=== PATIENT | male | born 1975 | race Caucasian/White ===

== ENCOUNTER 2017-11-26 07:30 | Emergency (ER) | payer SELFPAY ==
[2017-11-26] MEDS ORDERED: KETOROLAC 30 MG/ML INJ ONE (07:59)
--- NOTE | 2017-11-26 08:19 | EDPHYS ---
Physician Documentation [facility] Name: Dalton Jha Age: 42 yrs Sex: Male : 1975 Arrival Date: 11/26/2017 Time: 07:33 Bed 8 Private MD: Jeff Lundberg ED Physician Sadi Hung HPI: 11/26 08:31 This 42 yrs old Male presents to ER via Ambulatory with complaints of Back kb Pain. 08:31 The patient presents with pain that is chronic, with no known mechanism of injury. The kb symptoms are located in the low back. Onset: The symptoms/episode began/occurred last week. The pain does not radiate. Associated signs and symptoms: The patient has no apparent associated signs or symptoms. The problem was sustained from a chronic condition. 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 Severity of symptoms: At their worst the symptoms were moderate, in the emergency department the symptoms are unchanged. The patient has experienced similar episodes in the past, chronically. The patient has not recently seen a physician. Pt reports he has had chronic back pain, used to see Dr Aleman for pain management, but couldn't work anymore due to pain so he lost his job and insurance. States he hasn't been to him in about a year and a half and has been out of work that long as well. 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 Pt made appt with Ash for 12/06 and will follow up with him then. STates "I came in to see if I could get an order for a MRI so he could have the report when I go see him.". Historical: - Allergies: 07:48 PENICILLINS; sv - PMHx: 07:48 ADD/ADHD; Back pain; sv - PSHx: 07:48 None; sv - Immunization history:: Adult Immunizations up to date. - Social history:: Smoking status: Patient/guardian denies using tobacco. - Ebola Screening: : No symptoms or risks identified at this time. ROS: 08:30 Constitutional: Negative for fever, chills, and weight loss, Cardiovascular: Negative kb for chest pain, palpitations, and edema, Respiratory: Negative for shortness of breath, cough, wheezing, and pleuritic chest pain, Abdomen/GI: Negative for abdominal pain, nausea, vomiting, diarrhea, and constipation, : Negative for injury, bleeding, discharge, and swelling, MS/Extremity: Negative for injury and deformity, Skin: Negative for injury, rash, and discoloration, Neuro: Negative for headache, weakness, numbness, tingling, and seizure. 08:30 Back: Positive for pain at rest, pain with movement, of the lumbar area. Exam: 08:29 Constitutional: This is a well developed, well nourished patient who is awake, alert, kb and in no acute distress. Head/Face: Normocephalic, atraumatic. Eyes: Pupils equal round and reactive to light, extra-ocular motions intact. Lids and lashes normal. Conjunctiva and sclera are non-icteric and not injected. Cornea within normal limits. Periorbital areas with no swelling, redness, or edema. Neck: Trachea midline, no thyromegaly or masses palpated, and no cervical lymphadenopathy. Supple, full range of motion without nuchal rigidity, or vertebral point tenderness. No Meningismus. Chest/axilla: Normal chest wall appearance and motion. Nontender with no deformity. No lesions are appreciated. Cardiovascular: Regular rate and rhythm with a normal S1 and S2. No gallops, murmurs, or rubs. Normal PMI, no JVD. No pulse deficits. Respiratory: Lungs have equal breath sounds bilaterally, clear to auscultation and percussion. No rales, rhonchi or wheezes noted. No increased work of breathing, no retractions or nasal flaring. Abdomen/GI: Soft, non-tender, with normal bowel sounds. No distension or tympany. No guarding or rebound. No evidence of tenderness throughout. Back: No spinal tenderness. No costovertebral tenderness. Full range of motion. Skin: Warm, dry with normal turgor. Normal color with no rashes, no lesions, and no evidence of cellulitis. MS/ Extremity: Pulses equal, no cyanosis. Neurovascular intact. Full, normal range of motion. Neuro: Awake and alert, GCS 15, oriented to person, place, time, and situation. Cranial nerves II-XII grossly intact. Motor strength 5/5 in all extremities. Sensory grossly intact. Cerebellar exam normal. Normal gait. 08:34 Neuro: Exam negative for acute changes, gait abnormality, paresthesias. kb Vital Signs: 07:49 BP 136 / 90; Pulse 75; Resp 18; Temp 97.4; Pulse Ox 100% ; Weight 90.72 kg; Height 5 sv ft. 10 in. (177.80 cm); Pain 8/10; 07:49 Body Mass Index 28.70 (90.72 kg, 177.80 cm) sv MDM: 07:36 Patient medically screened. kb 07:48 Data reviewed: vital signs, nurses notes. Data interpreted: Pulse oximetry: on room air kb is 98 %. Interpretation: normal. Counseling: I had a detailed discussion with the patient and/or guardian regarding: the historical points, exam findings, and any diagnostic results supporting the discharge/admit diagnosis, the need for outpatient follow up, a picture painter, to return to the emergency department if symptoms worsen or persist or if there are any questions or concerns that arise at home, Pt has appt with Dr Aleman on 12/06. Administered Medications: 07:55 Drug: TORadol 60 mg Route: IM; Site: right deltoid; 08:21 Follow up: Response: No adverse reaction sv Disposition: 10:18 Co-signature as Attending Physician, Sadi Hung MD I agree with the assessment and nya plan of care. Disposition: 11/26/17 08:19 Discharged to Home. Impression: Low back pain, Chronic pain, not elsewhere classified. - Condition is Stable. - Discharge Instructions: Back Injury Prevention, [id number], Back Pain, Adult, [id number], Back Exercises, [id number]-mh-[id number]. - Prescriptions for Cyclobenzaprine 10 mg Oral Tablet - take 1 tablet by ORAL route every 8 hours As needed; 21 tablet. Diclofenac Sodium 75 mg Oral Tablet, Delayed Release (E.C.) - take 1 tablet by ORAL route 2 times per day As needed; 30 tablet. - Medication Reconciliation Form, Thank You Letter, Antibiotic Education, Prescription Opioid Use form. - Follow up: Emergency Department; When: As needed; Reason: Worsening of condition. Follow up: Private Physician; When: 2 - 3 days; Reason: Recheck today's complaints, Continuance of care, Re-evaluation by your physician. Signatures: Koki García, Deena Cummings RN RN sv Anderson, Corey, MD MD cha Baxter, Heather, RN RN Corrections: (The following items were deleted from the chart) 08:26 08:19 11/26/2017 08:19 Discharged to Home. Impression: Low back pain; Chronic pain, not hb elsewhere classified. Condition is Stable. Discharge Instructions: Back Injury Prevention, [id number], Back Pain, Adult, [id number], Back Exercises, [id number]-mf-[id number]. Prescriptions for Cyclobenzaprine 10 mg Oral Tablet - take 1 tablet by ORAL route every 8 hours As needed; 21 tablet, Diclofenac Sodium 75 mg Oral Tablet, Delayed Release (E.C.) - take 1 tablet by ORAL route 2 times per day As needed; 30 tablet. and Forms are Medication Reconciliation Form, Thank You Letter, Antibiotic Education, Prescription Opioid Use. Follow up: Emergency Department; When: As needed; Reason: Worsening of condition. Follow up: Private Physician; When: 2 - 3 days; Reason: Recheck today's complaints, Continuance of care, Re-evaluation by your physician. kb
--- NOTE | 2017-11-26 08:19 | ER ---
Nurse's Notes [facility] Name: Dalton Jha Age: 42 yrs Sex: Male : 1975 Arrival Date: 11/26/2017 Time: 07:33 Bed 8 Private MD: Jeff Lundberg Diagnosis: Low back pain;Chronic pain, not elsewhere classified Presentation: 11/26 07:38 Presenting complaint: Patient states: chronic low back pain but injured it at work last sv week after shoveling at work. Transition of care: patient was not received from another setting of care. Onset of symptoms was November 19, 2017. Risk Assessment: Do you want to hurt yourself or someone else? Patient reports no desire to harm self or others. Initial Sepsis Screen: Does the patient meet any 2 criteria? No. Patient's initial sepsis screen is negative. Does the patient have a suspected source of infection? No. Patient's initial sepsis screen is negative. Care prior to arrival: Medication(s) given: BC powder. 07:38 Method Of Arrival: Ambulatory sv 07:38 Acuity: SANDER 4 sv Triage Assessment: 07:38 General: Appears in no apparent distress. uncomfortable, well developed, Behavior is sv calm, cooperative, appropriate for age. Pain: Complains of pain in lumbar area Pain currently is 8 out of 10 on a pain scale. Pain began last week Is continuous, Current management is with BC powder. EENT: No signs and/or symptoms were reported regarding the EENT system. Neuro: Level of Consciousness is awake, alert, obeys commands, Oriented to person, place, time, situation, Moves all extremities. Full function Gait is steady, Speech is normal. Cardiovascular: Patient's skin is warm and dry. Respiratory: Respiratory effort is even, unlabored, Respiratory pattern is regular, symmetrical. Derm: Skin is pink, warm \T\ dry. Musculoskeletal: Circulation, motion, and sensation intact. Range of motion: intact in all extremities. Historical: - Allergies: 07:48 PENICILLINS; sv - PMHx: 07:48 ADD/ADHD; Back pain; sv - PSHx: 07:48 None; sv - Immunization history:: Adult Immunizations up to date. - Social history:: Smoking status: Patient/guardian denies using tobacco. - Ebola Screening: : No symptoms or risks identified at this time. Screenin:45 Abuse screen: Denies threats or abuse. Denies injuries from another. Nutritional hb screening: No deficits noted. Tuberculosis screening: No symptoms or risk factors identified. Fall Risk None identified. Assessment: 07:45 General: Appears in no apparent distress. Behavior is calm, cooperative. Pain: Pain hb currently is 8 out of 10 on a pain scale. Neuro: Level of Consciousness is awake, alert, obeys commands, Oriented to person, place, time, situation. Cardiovascular: Capillary refill < 3 seconds Patient's skin is warm and dry. Respiratory: Airway is patent Trachea midline Respiratory effort is even, unlabored, Respiratory pattern is regular, symmetrical. GI: No signs and/or symptoms were reported involving the gastrointestinal system. : No signs and/or symptoms were reported regarding the genitourinary system. EENT: No signs and/or symptoms were reported regarding the EENT system. Derm: Skin is intact, is healthy with good turgor. Musculoskeletal: Reports pain in back. 08:26 Reassessment: Patient appears in no apparent distress at this time. No changes from previously documented assessment. Patient and/or family updated on plan of care and expected duration. Pain level reassessed. Patient is alert, oriented x 3, equal unlabored respirations, skin warm/dry/pink. Vital Signs: 07:49 BP 136 / 90; Pulse 75; Resp 18; Temp 97.4; Pulse Ox 100% ; Weight 90.72 kg; Height 5 sv ft. 10 in. (177.80 cm); Pain 8/10; 07:49 Body Mass Index 28.70 (90.72 kg, 177.80 cm) sv ED Course: 07:33 Patient arrived in ED. mr 07:34 Jeff Lundberg DO is Private Physician. mr 07:36 [facility]C [facility]. kb 07:36 Sadi Hung MD is Attending Physician. kb 07:45 Deena Yancey, LANETTE is Primary Nurse. sv 07:45 Patient has correct armband on for positive identification. Bed in low position. Call hb light in reach. Side rails up X 1. 07:45 Patient did not have IV access during this emergency room visit. hb 07:47 Triage completed. sv 07:49 Arm band placed on right wrist. sv 08:26 No provider procedures requiring assistance completed. hb Administered Medications: 07:55 Drug: TORadol 60 mg Route: IM; Site: right deltoid; hb 08:21 Follow up: Response: No adverse reaction sv Outcome: 08:19 Discharge ordered by MD. rivera 08:26 Discharged to home ambulatory. hb 08:26 Condition: stable 08:26 Discharge instructions given to patient, Instructed on discharge instructions, follow up and referral plans. medication usage, Demonstrated understanding of instructions, follow-up care, medications, Prescriptions given X 2. 08:26 Patient left the ED. hb Signatures: Koki García, GOLF BALL TRIMMER-C GOLF BALL TRIMMER-Deena Ruiz, RN RN Cierra Arana mr Randi Eddy RN RN
[2017-11-26 08:30] VITALS: BP 136/90; TEMP 97.4; O2SAT 100
== END 2017-11-26 08:26 | disposition home or self-care (01) ==
LOC: ER 07:30
DX: G89.29 Other chronic pain (principal); Z88.0 Allergy status to penicillin
CPT/HCPCS: 96372; 99283

== ENCOUNTER 2024-05-18 10:00 | Emergency (ER) | payer OTHER ==
--- OUTSIDE RECORDS SUMMARY | 2024-05-18 10:04 | XMS REPORT | Continuity of Care Document ---
Author Name Unknown Address [address] [facility] [address] [place] [address] [facility] thconnect Address [address] [facility]. [address] [place] [address] Care Team Providers Care Associate Product Manager Name Role Phone Alvin León Primary Care Physician [phone] Ashok Ponce Attending Clinician Unavailable Alvin León Attending Clinician Unavailable Dara Ravi Attending Clinician [phone] DARA FRANCIS Attending Clinician Unavailable BHAVANA CURRIE Attending Clinician Unavailable Payers Payer Name Policy Type Policy Number Effective Date Expirati on Date Source [facility] PPO [id number] [facility] C1 [id number] 2019 00:00:00 Common [facility] Problems Condition Name Condition Details Condition Category Status Onset Date Resolution Date Last Treatment Date Treating Clinician Comments Source Allergic rhinitis Allergic rhinitis Disease Active 2021-03- 00:00: 00 [facility] Chronic pain Chronic pain Disease Active 2021-03 0-16 00:00: 00 [facility] Generalize d anxiety disorder Generalize d anxiety disorder Disease Active 2021-03-16 00:00: 00 [facility] Posttrauma tic stress disorder Posttrauma tic stress disorder Disease Active 2021-03 00:00: 00 [facility] Hyperlipid emia Hyperlipid emia Disease Active 2021-03 00:00: 00 [facility] Sciatica Sciatica Disease Active 2021-03 00:00: 00 [facility] Low back pain Low back pain Disease Active 04-24 00:00: 00 [facility] [id number] Lumbago with sciatica, left side Problem Active [facility] Allergies, Adverse Reactions, Alerts Allergy Name Allergy Type Status Severity Reaction(s) Onset Date Inactive Date Treating Clinician Comments Source Penicill in Propensi ty to adverse reaction s Active Unknown - See comments 04-24 00:00: 00 Not sure what his reaction was - too young to remember [facility] PENICILL IN DRUG INGREDI Active Unknown-Cmnt 04-24 00:00: 00 [facility] penicill amine penicill amine Active SOB [facility] Social History Social Habit Start Date Stop Date Quantity Comments Source History of Tobacco Use [facility] Alcohol intake 2022-01-11 00:00:00 2022-01-11 00:00:00 0 /d [facility] Sex Assigned At 1975 00:00:00 1975 00[birth year]00 [facility] Smoking Status Start Date Stop Date Source Never smoked tobacco [facility] Medications Ordered Medication Name Filled Medication Name Start Date Stop Date Current Medication? Ordering Clinician Indication Dosage Frequency Signature (SIG) Comments Components Source predniSONE 20 mg tablet 2021-03 00:00: 00 01-17 04:59 :00 No [id number] 40mg Take 2 tablets by mouth in the morning for 5 days. [facility] Naproxen Naproxen 12-10 00:00: 00 12-25 00:00 :00 No Alvin León 1 tablet with food or milk as needed for severe pain [facility] ibuprofen 400 mg tablet 2016-03 00:00: 00 Yes 400mg Take 1 tablet by mouth every 6 (six) hours as needed for Pain (scale 1-3). [facility] TRAMADOL HCL (TRAMADOL ORAL) 09-23 19:54: 17 Yes Take by mouth. [facility] Duloxetine HCl 30 MG Duloxetine HCl 30 MG No Duloxetine HCl 30 MG Quetiapine Fumarate 50 MG Quetiapine Fumarate 50 MG No Quetiapine Fumarate 50 MG Diazepam 10 MG Diazepam 10 MG No Diazepam 10 MG Motrin Motrin No Motrin Naproxen 500 MG Naproxen 500 MG No BID Naproxen 500 MG Alprazolam 0.5 MG Alprazolam 0.5 MG No Alprazolam 0.5 MG Chlordiazep oxide HCl 25 MG Chlordiazep oxide HCl 25 MG No Chlordiaze poxide HCl 25 MG Zolpidem Tartrate 10 MG Zolpidem Tartrate 10 MG No Zolpidem Tartrate 10 MG Vital Signs Vital Name Observation Time Observation Value Comments S ource Systolic blood pressure 2022-01-11 16:01:00 110 mm[Hg] [facility] hospital Diastolic blood pressure 2022-01-11 16:01:00 70 mm[Hg] General acute hospital Heart rate 2022-01-11 16:01:00 92 /min [facility] Body temperature 2022-01-11 16:01:00 36.67 Karli [facility] Respiratory rate 2022-01-11 16:01:00 18 /min [facility] Body weight 2022-01-11 16:01:00 81.647 kg [facility] BMI 2022-01-11 16:01:00 25.83 kg/m2 [facility] Oxygen saturation in Arterial blood by Pulse oximetry 2022-01-11 16:01:00 99 /min [facility] acute hospital bmi 2020-02-28 11:00:00 29.47 kg/m2 Comm on [facility] oximetry 2020-02-28 11:00:00 100 % Commo n [facility] respiratory rate 2020-02-28 11:00:00 16 /min [facility] blood pressure systolic 2020-02-28 11:00:00 127 mm[Hg] Common [facility] t [facility] blood pressure diastolic 2020-02-28 11:00:00 87 mm[Hg] [facility] height 2020-02-28 11:00:00 70 [in_i] Commo n [facility] weight 2020-02-28 11:00:00 205.4 [lb_av] Co mmon [facility] temperature 2020-02-28 11:00:00 97.2 [degF] Com [facility] height 2020-02-08 14:20:00 70 [in_i] Commo n [facility] weight 2020-02-08 14:20:00 200.2 [lb_av] Co [facility] temperature 2020-02-08 14:20:00 97.7 [degF] Com [facility] bmi 2020-02-08 14:20:00 28.72 kg/m2 Comm on [facility] oximetry 2020-02-08 14:20:00 100 % Commo n [facility] respiratory rate 2020-02-08 14:20:00 17 /min Common [facility] blood pressure systolic 2020-02-08 14:20:00 129 mm[Hg] Common [facility] blood pressure diastolic 2020-02-08 14:20:00 88 mm[Hg] [facility] height 2020-01-04 10:10:00 70 [in_i] Commo n [facility] weight 2020-01-04 10:10:00 201.8 [lb_av] Co mmon [facility] temperature 2020-01-04 10:10:00 98.3 [degF] Com [facility] bmi 2020-01-04 10:10:00 28.95 kg/m2 Comm on [facility] oximetry 2020-01-04 10:10:00 96 % Commo n [facility] respiratory rate 2020-01-04 10:10:00 16 /min [facility] blood pressure systolic 2020-01-04 10:10:00 127 mm[Hg] [facility] blood pressure diastolic 2020-01-04 10:10:00 85 mm[Hg] [facility] Procedures Procedure Date / Time Performed Performing Clinicia n Source NOTICE OF PRIVACY PRACTICES 2022-01-11 15:58:19 Doctor Unassigned, Russell [facility] CONSENT/REFUSAL FOR DIAGNOSIS AND TREATMENT 2022-01-11 15:57:59 Doctor Unassigned, Russell [facility] Encounters Start Date/Time End Date/Time Encounter Type Admission Type Attending Clinicians Care Facility Care Department Encounter ID Source 2023-07-14 15:53:00 Outpatient Ashok Ponce [facility] [id number] [facility] 2021-08-12 09:33:10 Outpatient Bhavana Sanders [facility] [id number] [facility] 2021-04-23 12:46:02 Outpatient León, [facility] [id number] [facility] 2021-04-23 12:04:48 Outpatient León, [facility] [id number] [facility] 2021-04-23 12:03:10 Outpatient León, [facility] [id number] [facility] 2021-04-23 11:53:14 Outpatient León, Alvin [facility] ST[facility] [id number] [facility] 2021-04-23 11:44:08 Outpatient León, Alvin [facility] [id number] [facility] 2021-04-23 11:43:41 Outpatient León, Alvin [facility] ST[facility] [id number] [facility] 2021-04-23 11:35:57 Outpatient León, Alvin [facility] [id number] [facility] 2021-04-23 11:35:43 Outpatient Alvin eLón [facility] [id number] [facility] 2023-01-19 13:37:55 2023-01-19 13:37:[address] [facility] [id number] Negro Fournier 2022-12-18 14:02:34 2022-12-18 14:02:[address] [facility] [id number] Negro Fournier 2022-01-11 11:03:00 2022-01-11 11:53:00 Emergency Francis, Dara [facility] [id number] [facility] 2022-01-11 11:03:00 2022-01-11 11:53:00 Emergency [facility] [id number] [facility] 2020-04-05 17:15:00 2020-04-05 17:15:00 Outpatient BHAVANA [facility]BINS [facility] [id number] [facility] 2020-02-28 00:00:00 2020-02-28 00:00:00 OFFICE VISIT ESTAB PT LEVEL 4 [facility]C ST[facility]C [id number] [facility] 2020-02-08 00:00:00 2020-02-08 00:00:00 OFFICE VISIT EST PT LEVEL 3 [facility] [id number] [facility] 2020-01-04 00:00:00 2020-01-04 00:00:00 OFFICE VISIT EST PT LEVEL 3 [facility]C ST[facility]C [id number] [facility] 2019-12-11 10:26:00 2019-12-11 10:26:[address] [facility] [id number] [facility] 2019-12-05 16:00:00 2019-12-05 16:00:00 Outpatient [facility] [id number] [facility] 2019-11-02 15:15:00 2019-11-02 15:15:00 Outpatient [facility] [id number] [facility] Results Test Description Test Time Test Comments Results Result Co mments Source CULTURE, URINE 2022-12-20 16:00:51 SPECIMEN NUMBER: [id number] CULTURE, URINE SPECIMEN NUMBER: [id number] SPECIMEN COMMENT: URINE SOURCE: URINE REPORT STATUS: FINAL FINAL REPORT: 12/20/2022 NO GROWTH AFTER 36 HOURS INCUBATION COMPREHENSIVE METABOLIC [id number] 04:59:57* Test Item Value Reference Range Interpretation Comme nts GLUCOSE (test code = 2216) 94 MG/DL 70-99 BUN (test code = 2207) 17 MG/DL 6-20 CREATININE (test code = 2214) 1.05 MG/DL 0.80-1.40 eGFR (2020 CKD-EPI) (test code = 30138) 88 ML/MIN/1.73 >60 CALC BUN/CREAT (test code = 2235) 16 RATIO 6-28 SODIUM (test code = 2231) 138 MEQ/L 133-146 POTASSIUM (test code = 2228) 4.6 MEQ/L 3.5-5.4 CHLORIDE (test code = 2215) 103 MEQ/L 95-107 CARBON DIOXIDE (test code = 2206) 26 MEQ/L 19-31 CALCIUM (test code = 2209) 9.4 MG/DL 8.5-10.5 PROTEIN, TOTAL (test code = 222) 6.9 G/DL 6.1-8.3 ALBUMIN (test code = 2201) 4.8 G/DL 3.5-5.2 CALC GLOBULIN (test code = 2240) 2.1 G/DL 1.9-3.7 CALC A/G RATIO (test code = 2234) 2.3 RATIO 1.0-2.6 BILIRUBIN, TOTAL (test code = 2207) 0.5 MG/DL <=1.2 ALKALINE PHOSPHATASE (test code = 2204) 70 U/L 40-118 AST (test code = 2218) 26 U/L 9-50 ALT (test code = 2219) 29 U/L 5-50 UNLESS OTHERWISE INDICATED, ALL TESTING PERFORMED AT [facility] [address] [place] [id number] SUBSTATION OPERATOR AUTOMATIC: MICH MOSS M.D. CLIA NUMBER [id number] [facility] [place] [id number] HEMOGLOBIN [id number] 04:09:49* Test Item Value Reference Range Interpretation Comme [facility] HEMOGLOBIN A1c (test code = 39274) 5.3 % 4.2-5.6 [id number] 05:29:06* Test Item Value Reference Range Interpretation Comme [facility] TESTOSTERONE (test code = 2830) 620 NG/DL 300-890 UNLESS OTHERWISE INDICATED, [facility] [address] [place] [address] SUBSTATION OPERATOR AUTOMATIC: RADHA YANEZ M.D. CLIA NUMBER [id number] [facility] [place]. [id number] VITAMIN D, 25 [id number] 04:43:27* Test Item Value Reference Range Interpretation Comme [facility] VITAMIN D, 25 OH (test code = 4958) 30 NG/ML SEE BELOW NOTE: 25-HYDR OXYVITAMIN D ASSAY INCLUDES 25-HYDROXYVITAMIN D2 AND D3. METHODOLOGY IS CHEMILUMINESCENT IMMUNOASSAY. INTERPRETIVE RANGES PEDIATRIC (<17 YEARS) . . . . . . . . . . . NG/ML 20-100ADULT: INSUFFICIENT . . . . . . . . . . . . . . NG/ML <20 SUBOPTIMAL . . . . . . . . . . . . . . . NG/ML 20-29 OPTIMAL . . . . . . . . . . . . . . . . . NG/ML 30-100
[2024-05-18] MEDS ORDERED: METHYLPREDNISOLONE 125 MG INJ ONE (10:25)
--- NOTE | 2024-05-18 10:26 | EDPHYS ---
Physician Documentation [facility] Name: Dalton Jha Age: 49 yrs Sex: Male : 1975 Arrival Date: 05/18/2024 Time: 10:00 Bed 17 Private MD: ED Physician Kathryn León HPI: 05/18 10:23 This 49 yrs old Male presents to ER via Ambulatory with complaints of Low Back Pain. sp3 10:23 49-year-old male with ADHD and chronic back pain sees pain specialist and is currently sp3 on gabapentin and hydrocodone presents to the ED with bilateral lumbar radiculopathy after "bending down wrong and getting back up wrong". He denies loss of bowel or bladder control, other neurological symptoms, abdominal pain with chest pain, back pain or any other signs or symptoms on ROS at this time. Patient is requesting a "steroid shot" as that is helped him in the past.. Historical: - Allergies: 10:05 PENICILLINS; ll1 - PMHx: 10:05 ADD/ADHD; Back pain; ll1 - Immunization history:: Adult Immunizations up to date. - Infectious Disease History:: Denies. - Social history:: Smoking status: Reported history of juuling and/or vaping. ROS: 10:23 Constitutional: Negative for fever, chills, and weight loss, Eyes: Negative for injury, sp3 pain, redness, and discharge, Neck: Negative for injury, pain, and swelling, Cardiovascular: Negative for chest pain, palpitations, and edema, Respiratory: Negative for shortness of breath, cough, wheezing, and pleuritic chest pain, Abdomen/GI: Negative for abdominal pain, nausea, vomiting, diarrhea, and constipation, MS/Extremity: Negative for injury and deformity, Skin: Negative for injury, rash, and discoloration, Neuro: Negative for headache, weakness, numbness, tingling, and seizure, Psych: Negative for depression, anxiety, suicide ideation, homicidal ideation, and hallucinations, Allergy/Immunology: Negative for hives, rash, and allergies, 10:23 All other systems are negative, Exam: 10:24 Constitutional: This is a well developed, well nourished patient who is awake, alert, sp3 and in no acute distress. Head/Face: Normocephalic, atraumatic. Neck: Trachea midline, no thyromegaly or masses palpated, and no cervical lymphadenopathy. Supple, full range of motion without nuchal rigidity, or vertebral point tenderness. No Meningismus. Chest/axilla: Normal chest wall appearance and motion. Nontender with no deformity. No lesions are appreciated. Cardiovascular: Regular rate and rhythm with a normal S1 and S2. No gallops, murmurs, or rubs. Normal PMI, no JVD. No pulse deficits. Respiratory: Lungs have equal breath sounds bilaterally, clear to auscultation and percussion. No rales, rhonchi or wheezes noted. No increased work of breathing, no retractions or nasal flaring. Abdomen/GI: Soft, non-tender, with normal bowel sounds. No distension or tympany. No guarding or rebound. No evidence of tenderness throughout. Back: No spinal tenderness. No costovertebral tenderness. Full range of motion. Skin: Warm, dry with normal turgor. Normal color with no rashes, no lesions, and no evidence of cellulitis. 10:24 Musculoskeletal/extremity: Bilateral pain on straight leg raise at 30 degrees. Patient is slow to walk but can ambulate. Neurological exam otherwise normal.. Vital Signs: 10:11 BP 153 / 110; Pulse 81; Resp 17; Temp 97.3; Pulse Ox 100% on R/A; Weight 88.45 kg; ll1 Height 5 ft. 10 in. ; Pain 7/10; 10:11 Body Mass Index 27.98 (88.45 kg, 177.8 cm) ll1 10:11 Pain Scale: Adult ll1 MDM: 10:06 Medical Screening Exam initiated sp3 10:25 Data reviewed: vital signs, nurses notes, old medical records. ED course: 49-year-old sp3 male with recurrent bilateral lumbar radiculopathy. Patient has an appointment with his PCP already scheduled as well as his pain doctor. He took his gabapentin and hydrocodone which helped minimally. He is requesting intramuscular steroid and Medrol Dosepak, which I think are appropriate. Clinically have ruled out UTI, pyelonephritis, cord compression or other spinal cord compromise, or any other critical process at this time.. Administered Medications: 10:32 Drug: MethylPREDNISolone Sodium Succinate IM 125 mg IM once Route: IM; Site: right kc6 deltoid; 10:39 Follow up: Response: No adverse reaction kc6 Disposition Summary: 05/18/24 10:26 Discharge Ordered Notes: Location: Home sp3 Condition: Stable sp3 Diagnosis - Bilateral lumbar radiculopathy, acute on chronic low back pain sp3 Followup: sp3 - With: Private Physician - When: Upon discharge from the Emergency Department - Reason: Continuance of care Discharge Instructions: - Discharge Summary Sheet sp3 - Lumbosacral Radiculopathy sp3 Forms: - Medication Reconciliation Form sp3 - Antibiotic Education sp3 - Prescription Opioid Use sp3 - Patient Portal Instructions sp3 - Leadership Thank You Letter sp3 - Work release form kc6 Prescriptions: - Medrol (Stefan) 4 mg Oral Tablets, Dose Pack - take 1 tablet ORAL route as directed - follow package instructions; 1 packet; sp3 Refills: 0, Product Selection Permitted Signatures: Sidney Rosenberg RN RN ll1 Kathryn León MD MD sp3 Jacki Deal RN RN kc6
--- NOTE | 2024-05-18 10:26 | ER ---
Nurse's Notes [facility] Name: Dalton Jha Age: 49 yrs Sex: Male : 1975 Arrival Date: 05/18/2024 Time: 10:00 Bed 17 Private MD: Diagnosis: Bilateral lumbar radiculopathy, acute on chronic low back pain Presentation: 05/18 10:11 Chief complaint: Patient states: Low back pain for 2 days after lifting an object. ll1 Coronavirus screen: Client denies travel out of the [place] in the last 14 days. At this time, the client does not indicate any symptoms associated with coronavirus-19. Ebola Screen: Patient denies travel to an Ebola-affected area in the 21 days before illness onset. Initial Sepsis Screen: Does the patient meet any 2 criteria? No. Patient's initial sepsis screen is negative. Does the patient have a suspected source of infection? No. Patient's initial sepsis screen is negative. Risk Assessment: Do you want to hurt yourself or someone else? Patient reports no desire to harm self or others. Onset of symptoms was May 17, 2024. 10:11 Method Of Arrival: Ambulatory ll1 10:11 Acuity: SANDER 3 ll1 Triage Assessment: 10:11 General: Appears uncomfortable, Behavior is calm, cooperative, appropriate for age. ll1 Pain: Complains of pain in back Quality of pain is described as aching. Musculoskeletal: Reports pain in back. Historical: - Allergies: 10:05 PENICILLINS; ll1 - PMHx: 10:05 ADD/ADHD; Back pain; ll1 - Immunization history:: Adult Immunizations up to date. - Infectious Disease History:: Denies. - Social history:: Smoking status: Reported history of juuling and/or vaping. Screenin:20 [facility] ED Fall Risk Assessment (Adult) History of falling in the last 3 months, kc6 including since admission Yes- single mechanical fall (1 pt) Confusion or Disorientation No (0 pts) Intoxicated or Sedated No (0 pts) Impaired Gait No (0 pts) Mobility Assist Device Used No (0 pt) Altered Elimination No (0 pt) Score/Fall Risk Level 0 - 2 = Low Risk Oriented to surroundings, Maintained a safe environment, Educated pt \T\ family on fall prevention, incl call for assistance when getting out of bed. Abuse screen: Denies threats or abuse. Denies injuries from another. Nutritional screening: No deficits noted. Tuberculosis screening: No symptoms or risk factors identified. Assessment: 10:18 General: Appears in no apparent distress. comfortable, well groomed, well developed, kc6 Behavior is calm, cooperative, appropriate for age. Pain: Complains of pain in lumbar area Pain does not radiate. Pain currently is 6 out of 10 on a pain scale. Quality of pain is described as sharp, pinching, Pain began 2-3 days ago. Is episodic, Alleviated by medications, rest, repositioning, heat application, Aggravated by increased activity, Noted to be resistant to movement, Also complains of inability to work, inability to perform activities of daily living. Neuro: Level of Consciousness is awake, alert, obeys commands, Oriented to person, place, time, situation, Appropriate for age. Cardiovascular: Capillary refill < 3 seconds. Respiratory: Airway is patent Trachea midline Respiratory effort is even, unlabored, Respiratory pattern is regular, symmetrical. GI: No signs and/or symptoms were reported involving the gastrointestinal system. : No signs and/or symptoms were reported regarding the genitourinary system. EENT: No signs and/or symptoms were reported regarding the EENT system. Derm: No signs and/or symptoms reported regarding the dermatologic system. Skin is intact, is healthy with good turgor, Skin is pink, warm \T\ dry. Musculoskeletal: Circulation, motion, and sensation intact. Range of motion: intact in all extremities. Vital Signs: 10:11 BP 153 / 110; Pulse 81; Resp 17; Temp 97.3; Pulse Ox 100% on R/A; Weight 88.45 kg; ll1 Height 5 ft. 10 in. ; Pain 7/10; 10:11 Body Mass Index 27.98 (88.45 kg, 177.8 cm) ll1 10:11 Pain Scale: Adult ll1 ED Course: 10:04 Patient arrived in ED. al6 10:05 Arm band placed on Patient placed in an exam room, on a stretcher. ll1 10:06 Kathryn León MD is Attending Physician. sp3 10:11 Jacki Deal RN is Primary Nurse. kc6 10:12 Triage completed. ll1 10:20 Patient has correct armband on for positive identification. Bed in low position. Call kc6 light in reach. Side rails up X 1. Pulse ox on. NIBP on. Door closed. Noise minimized. Lights dimmed. Pillow given. Verbal reassurance given. 10:21 Patient maintains SpO2 saturation greater than 95% on room air. kc6 10:39 No provider procedures requiring assistance completed. Patient did not have IV access kc6 during this emergency room visit. Administered Medications: 10:32 Drug: MethylPREDNISolone Sodium Succinate IM 125 mg IM once Route: IM; Site: right [facility] deltoid; 10:39 Follow up: Response: No adverse reaction kc6 Medication: 10:40 VIS not applicable for this client. kc6 Outcome: 10:26 Discharge ordered by . sp3 10:40 Discharged to home ambulatory, 6 10:40 Condition: good 10:40 Discharge instructions given to patient, Instructed on discharge instructions, follow up and referral plans. medication usage, Demonstrated understanding of instructions, follow-up care, medications, Prescriptions given X 1, 10:40 Patient left the ED. kc6 Signatures: Sidney Rosenberg RN RN ll1 Kathryn León MD MD sp3 Jacki Deal RN RN kc6 Francisca Rubalcava6
[2024-05-19 13:57] VITALS: BP 153/110; TEMP 97.3; O2SAT 100
== END 2024-05-18 10:40 | disposition home or self-care (01) ==
LOC: ER 10:00
DX: M54.16 Radiculopathy, lumbar region (principal); M54.50 Low back pain, unspecified; F17.290 Nicotine dependence, other tobacco product, uncomplicated; Z88.0 Allergy status to penicillin
CPT/HCPCS: 96372; 99284; J2919